=== PATIENT | male | born 1980 | race Caucasian/White ===

== ENCOUNTER 2020-08-03 20:45 | Emergency (ER) | payer SELFPAY ==
[~2020-08-03] VITALS: Ht 175.3 cm; Wt 80.0 kg
[2020-08-03 20:51] VITALS: BP 107/71
--- NOTE | 2020-08-03 21:04 | NUR ---
Pt present to the ER with law enforcement because he became aggressive at [facility], per EMS. Per law enforcement, pt is too intoxicated to go to [facility]. Pt yelling for his girlfriend. Girlfriend call, "I don't have a car, I can't come get him." Pt continually taking off all monitoring equipment.
--- NOTE | 2020-08-03 22:36 | NUR ---
Pt refused d/c vitals.
== END 2020-08-03 22:36 | disposition home or self-care (01) ==
LOC: ED 22:14
DX: F10.120 Alcohol abuse with intoxication, uncomplicated (principal); F17.210 Nicotine dependence, cigarettes, uncomplicated; Y90.0 Blood alcohol level of less than 20 mg/100 ml
CPT/HCPCS: 99283; 99406